=== PATIENT | female | born 1940 | race Caucasian/White ===

== ENCOUNTER 2022-09-05 09:07 | Emergency (ER) | payer MEDICARE ==
[2022-09-05] MEDS ORDERED: methylPREDNISolone Sodium Succinate 40 MG/1 ML SDV IM ONE (09:26)
[2022-09-05] MEDS ORDERED: traMADol 50 MG Tab ONE (09:30)
== END 2022-09-05 09:45 | disposition home or self-care (01) ==
LOC: LB.ED 09:07
DX: M17.12 Unilateral primary osteoarthritis, left knee (principal); E11.9 Type 2 diabetes mellitus without complications; I10 Essential (primary) hypertension; D64.9 Anemia, unspecified; Z79.899 Other long term (current) drug therapy; Z79.84 Long term (current) use of oral hypoglycemic drugs
CPT/HCPCS: 96372; 99283; A9270; J2920

== ENCOUNTER 2022-11-09 10:51 | Emergency (ER) | payer MEDICARE ==
[2022-11-09 11:35] LABS: BASOPHILS ABSOLUTE AUTO 0.02 K/uL (0.02-0.10); BASOPHILS PERCENT AUTO 0.3 % (0.0-0.5); EOSINOPHILS ABSOLUTE AUTO 0.07 K/uL (0.04-0.40); HEMATOCRIT 44.4 % (37.0-47.0); HEMOGLOBIN 15.1 g/dL (11.5-16.5); LYMPHOCYTES ABSOLUTE AUTO 1.36 K/uL (1.50-4.00); LYMPHOCYTES PERCENT AUTO 18.8 % (20.0-40.0); MEAN CORPUSCULAR VOLUME 88 fL (76-96); MEAN PLATELET VOLUME 9.1 fL (6.0-10.0); MONOCYTES ABSOLUTE AUTO 0.55 K/uL (0.20-0.80); MONOCYTES PERCENT AUTO 7.6 % (3.0-10.0); NEUTROPHILS ABSOLUTE AUTO 5.23 K/uL (2.00-7.50); NEUTROPHILS PERCENT AUTO 72.3 % (45.0-70.0); PLATELET COUNT,PLT 191 K/uL (150-500); RED BLOOD CELL COUNT 5.04 M/uL (3.80-5.80); RED CELL DISTRIBUTION WIDTH 14.2 % (11.0-16.0); WHITE BLOOD CELL COUNT,WBC 7.2 K/uL (4.0-11.0)
== END 2022-11-09 12:02 | disposition home or self-care (01) ==
LOC: LB.ED 10:51
DX: E11.621 Type 2 diabetes mellitus with foot ulcer (principal); L89.529 Pressure ulcer of left ankle, unspecified stage; I10 Essential (primary) hypertension; Z88.0 Allergy status to penicillin; Z88.2 Allergy status to sulfonamides; Z88.8 Allergy status to other drugs, medicaments and biological substances; Z88.5 Allergy status to narcotic agent
CPT/HCPCS: 36415; 85025; 99283

== ENCOUNTER 2023-12-14 16:09 | Emergency (ER) | payer MEDICARE ==
[2023-12-14] MEDS: traMADol 50 MG Tab PO ONE (16:52)
[2023-12-14 16:58] LABS: BASOPHILS ABSOLUTE AUTO 0.04 K/uL (0.02-0.10); BASOPHILS PERCENT AUTO 0.6 % (0.0-0.5); EOSINOPHILS ABSOLUTE AUTO 0.04 K/uL (0.04-0.40); EOSINOPHILS PERCENT AUTO 0.6 % (1.0-5.0); HEMATOCRIT 44.4 % (37.0-47.0); HEMOGLOBIN 15.1 g/dL (11.5-16.5); LYMPHOCYTES ABSOLUTE AUTO 1.28 K/uL (1.50-4.00); LYMPHOCYTES PERCENT AUTO 19.4 % (20.0-40.0); MEAN CORPUSCULAR HEMOGLOBIN 30.6 pg (27.0-32.0); MEAN CORPUSCULAR VOLUME 90 fL (76-96); MEAN PLATELET VOLUME 9.5 fL (6.0-10.0); MONOCYTES ABSOLUTE AUTO 0.47 K/uL (0.20-0.80); MONOCYTES PERCENT AUTO 7.1 % (3.0-10.0); NEUTROPHILS ABSOLUTE AUTO 4.76 K/uL (2.00-7.50); NEUTROPHILS PERCENT AUTO 72.3 % (45.0-70.0); PLATELET COUNT,PLT 217 K/uL (150-500); RED BLOOD CELL COUNT 4.93 M/uL (3.80-5.80); WHITE BLOOD CELL COUNT,WBC 6.6 K/uL (4.0-11.0)
[2023-12-14 17:18] LABS: A/G RATIO 0.9 (0.8-2.0); ALANINE AMINOTRANSFERASE,ALT 21 U/L (12-78); ALBUMIN 3.5 g/dL (3.4-5.0); ALKALINE PHOSPHATASE 113 U/L (46-116); ANION GAP 14.3 mmol/L (5.0-15.0); ASPARTATE AMNIOTRANSFERASE,AST 14 U/L (15-37); BILIRUBIN TOTAL 0.5 mg/dL (0.0-1.0); BLOOD UREA NITROGEN,BUN 17 mg/dL (8-26); BUN/CREATININE RATIO 20.7 (6-25); CALCIUM 9.4 mg/dL (8.5-10.1); CARBON DIOXIDE,CO2 25.6 mmol/L (21.0-32.0); CHLORIDE,CL 101 mmol/L (98-107); CREATININE 0.82 mg/dL (0.55-1.02); ESTIMATED GFR 71 mL/min (>60); GLUCOSE RANDOM 241 mg/dL (74-100); POTASSIUM,K 3.9 mmol/L (3.5-5.1); PROTEIN TOTAL,TP 7.2 g/dL (6.4-8.2); SODIUM,NA 137 mmol/L (136-145)
[2023-12-14 17:32] LABS: INR 1.1 (1.0-3.5); PTT,PARTIAL THROMBOPLSTIN TIME 23.5 SECONDS (24.4-33.2)
[2023-12-14] MEDS: HYDROmorphone 2 MG/ML Syringe IVPUSH ONE (19:00)
[2023-12-14] MEDS: traMADol 50 MG Tab ONE (19:19)
[2023-12-14] MEDS: HYDROmorphone 2 MG/ML Syringe ONE (19:20)
[2023-12-15] MEDS ORDERED: Sodium Chloride 0.9% 10 ML Syringe FLUSH PRN (18:01)
== END 2023-12-14 19:35 ==
LOC: LB.ED 16:09
DX: S72.141A Displaced intertrochanteric fracture of right femur, initial encounter for closed fracture (principal); I10 Essential (primary) hypertension; E11.9 Type 2 diabetes mellitus without complications; Z79.01 Long term (current) use of anticoagulants; Z79.899 Other long term (current) drug therapy; Z88.0 Allergy status to penicillin; Z88.2 Allergy status to sulfonamides; Z88.8 Allergy status to other drugs, medicaments and biological substances; Z88.5 Allergy status to narcotic agent; W19.XXXA Unspecified fall, initial encounter
CPT/HCPCS: 36415; 71045; 73501; 80053; 85025; 85610; 85730; 96374; 99285; A9270; J1170